=== PATIENT | male | born 1995 | race Caucasian/White ===

== ENCOUNTER 2023-04-11 10:41 | Outpatient (RCR) | payer OTHER | END 2023-04-16 | LOC: WSOH | DX: S00.83XD Contusion of other part of head, subsequent encounter (principal); S06.0X0D Concussion without loss of consciousness, subsequent encounter; S16.1XXD Strain of muscle, fascia and tendon at neck level, subsequent encounter; R56.9 Unspecified convulsions; H18.609 Keratoconus, unspecified, unspecified eye; W01.0XXD Fall on same level from slipping, tripping and stumbling without subsequent striking against object, subsequent encounter; Y99.0 Civilian activity done for income or pay ==